=== PATIENT | female | born 1950 | race Caucasian/White ===

== ENCOUNTER 2023-05-15 08:13 | Day surgery (SDC) | payer MEDICARE, OTHER, SELFPAY ==
--- NOTE | 2023-05-15 | PATH_ITS ---
[facility] Accession Number: [id number] No. of containers..01 Tissue . 01 Material submitted: . colon - SIGMOID POLYP . 01 Diagnosis: SIGMOID POLYP: Tubular adenoma. STO 05/21/2023 1337 Local . 01 Electronically signed: . Archie Skinner MD, Pathologist NPI- [id number] . 01 Gross description: . SIGMOID POLYP: Received in formalin are multiple fragment(s) of contreras, soft tissue measuring 0.3 x 0.2 x 0.2 cm to 0.7 x 0.6 x 0.3 cm submitted entirely in 1 cassette(s) /CARL 05/21/20237 Local . 01 Pathologist provided ICD-10: D12.5 . 01 CPT . 342107 Specimen Comment: A courtesy copy of this report has been sent to [phone] Performed at: 01 [facility] [address] [place] [address], [place], [place] [id number] MD Archie Skinner MD Phone: [phone]
[2023-05-15] MEDS: LACTATED RINGERS 1,000 ML 42 ML IV (08:50)
[2023-05-15 08:51] VITALS: BP 149/89; PULSE 78; RESP 16; TEMP 36.3; O2SAT 99
--- NOTE | 2023-05-15 09:31 | PM.PREOP ---
Pre-operative Note Interval Note History & Physical reviewed/Exam performed by Physician: Yes Changes to H&P: No
[2023-05-15 10:02] VITALS: BP 150/89; PULSE 82; RESP 21; TEMP 36.6; O2SAT 91
[2023-05-15 10:07] VITALS: BP 155/92; PULSE 78; RESP 18; O2SAT 99
--- NOTE | 2023-05-15 10:07 | P.OP.COLON_ITS ---
Operative Date/Time/Diagnoses Date of procedure: 05/15/23 Time of procedure: 10:07 Pre-op diagnosis: Positive Cologuard Procedure & Clinicians Study performed: Diagnostic colonoscopy Same procedure as scheduled: Yes Indications: Diagnostic colonoscopy for positive Cologuard test Surgeon: Jose David Shirley Procedure Notes Procedure in detail: The history and physical was performed/updated and the patient is ASA class is 2. The procedure was discussed in detail with the patient. Potential risks complications including infection, bleeding, missed diagnosis, perforation, need for surgery, and were explained. Their questions were answered and informed consent was obtained. Patient was brought to the procedure room and placed standard monitoring equipment. The patient's vital signs were monitored continuously throughout the entire procedure. Prior to starting time-out was performed. The patient was placed in the left lateral recumbent position. Procedural sedation was administered by anesthesia. Examination began with a thorough inspection of the perianal area there was no evidence of fissures, fistulae, external hemorrhoids or cutaneous malignancy. The colonoscopy scope was then placed into the anal canal and was advanced to the cecum, which was identified by the ileocecal valve, the appendiceal orifice and the confluence of the taenia. The scope was then slowly withdrawn examining colon thoroughly in all directions, irrigating it of any residual stool. The scope was retroflexed within the rectum The patient tolerated the procedure well. They will be discharged once criteria are met. The prep was of good/excellent quality. The withdrawl time was 7 minutes. FINDINGS * Sigmoid colon-8 mm polyp sessile removed with cold snare in entirety. * Internal hemorrhoids Specimen(s): other (Sigmoid polyp) Impression: Colonic polyp x1 Post-procedure Plan for aftercare: Follow-up is dependent on pathology findings. Disposition: same day surgery
[2023-05-15 10:12] VITALS: BP 147/82; PULSE 86; RESP 18; O2SAT 95
[2023-05-15 10:17] VITALS: BP 142/85; PULSE 83; RESP 12; O2SAT 99
== END 2023-05-15 10:43 | disposition home or self-care (01) ==
PROVIDERS: PCP Internal Medicine; Referring Provider Surgery; Visit Provider Surgery
PROC: 0DJD8ZZ Inspection of Lower Intestinal Tract, Via Natural or Artificial Opening Endoscopic (ICD-10-PCS; CPT 45378; principal; 2023-05-15 09:15)
DX: R19.5 Other fecal abnormalities (principal); R10.9 Unspecified abdominal pain; R14.0 Abdominal distension (gaseous); K62.5 Hemorrhage of anus and rectum; R19.7 Diarrhea, unspecified; K64.8 Other hemorrhoids; D12.5 Benign neoplasm of sigmoid colon
CPT/HCPCS: 45385; J2704

== ENCOUNTER → 2023-05-18 11:09 | Outpatient (CLI) | payer MEDICARE, OTHER, SELFPAY ==
--- NOTE | 2023-05-18 11:11 | DI.CT.S_ITS ---
PROCEDURE: CT CHEST ABD PEL W CON INDICATIONS: ABD PAIN TECHNIQUE: After the administration of intravenous contrast, 5 mm thick sections acquired from the lung apices to the symphysis. 5 mm coronal and sagittal reformats were performed, with additional 7 mm MIP reformats through the lungs. For radiation dose reduction, the following was used: automated exposure control, adjustment of mA and/or kV according to patient size. COMPARISON: None. FINDINGS: Image quality: Excellent. CHEST: Lower Neck: No enlarged lymph nodes. Thyroid: No thyroid nodules which require sonographic follow up, per consensus guidelines. Axillae: No enlarged lymph nodes. Chest Wall: Unremarkable. Lungs and Pleura: Lungs are hyperinflated consistent with COPD. Scars and atelectasis in lingula. No pneumothorax or pleural effusions. No consolidation or suspicious nodules. Heart: Heart size is normal. No pericardial effusion. Thoracic Vessels: The aorta and pulmonary arteries demonstrate normal size. Mediastinum and Victoria: No enlarged lymph nodes. Esophagus: No wall thickening. No hiatal hernia. ABDOMEN: Liver: No solid mass. Gallbladder: Surgically removed. Biliary ducts: The biliary ducts are prominent, likely secondary to cholecystectomy. Pancreas: No ductal dilation. Spleen: Size is within normal limits. Adrenal Glands: No adrenal nodules. Kidneys and Ureters: No hydronephrosis. No solid mass. No complex renal cystic lesion which requires follow up. Stomach and Bowel: Normal bowel caliber, without significant wall thickening. Peritoneum: No abnormal intraperitoneal fluid. No free air. Ventral Wall: No significant ventral hernia. Abdominal Nodes: No retroperitoneal or mesenteric adenopathy by size criteria. Vessels: Aorta and inferior vena cava are normal in size. PELVIS: Pelvic Organs: There is a complex cyst in the right adnexa measuring 4.9 x 3.8 cm. Left ovary is unremarkable. Uterus is grossly normal. No pathological free-fluid in the cul-de-sac or adnexa Bladder: No bladder wall thickening, accounting for underdistention. Pelvic Nodes: No enlarged lymph nodes. Miscellaneous: No inguinal hernias are seen. Bones: No aggressive osseous abnormality. Moderate spondylitic changes in the lower lumbar spine. IMPRESSION: 1. No acute abnormalities identified. 2. A 4.5 x 3.8 cm complex cyst in the right adnexa, likely arising from the right ovary. Recommend pelvic ultrasound follow-up. Dictated by: Romina Daniels M.D. on 05/18/2023 at 12:05 Approved by: Romina Daniels M.D. on 05/18/2023 at 12:25
[2023-05-18 11:38] LABS: Estimated Glomerular Filt Rate > 60 mL/min (>60)
== END ==
LOC: CT 11:10
PROVIDERS: Radiology Diagnostic Radiology; PCP Internal Medicine; Referring Provider Surgery; Visit Provider Surgery
DX: N94.89 Other specified conditions associated with female genital organs and menstrual cycle (principal); R10.9 Unspecified abdominal pain; M47.816 Spondylosis without myelopathy or radiculopathy, lumbar region; Z90.49 Acquired absence of other specified parts of digestive tract
CPT/HCPCS: 36415; 71260; 74177; 82565; Q9967

== ENCOUNTER → 2023-06-01 15:40 | Outpatient (CLI) | payer MEDICARE, OTHER, SELFPAY ==
--- NOTE | 2023-06-01 15:42 | DI.US.S_ITS ---
PROCEDURE: US PELVIC COMPLETE INDICATIONS: 4.5 x 3.8 cm complex cyst in the right adnexa TECHNIQUE: Real-time scanning was performed of the pelvic organs, with image documentation. Additional endovaginal scanning was necessary due to incomplete visualization of the adnexal and endometrial structures by transabdominal scanning. COMPARISON: [facility], CT, CT CHEST ABD PEL W CON, 05/18/2023, 12:41. FINDINGS: Uterus: Uterus is anteverted and normal in size at 4.6 x 3.9 x 2.2 cm. The myometrium is heterogeneous. No discrete uterine fibroids. The endometrium measures 6.4 mm combined thickness. 9 x 8 x 5 mm solid-appearing structure within endometrium with surrounding small amount of endometrial fluid is seen. No significant internal vascularity. Ovaries: The right ovary measures 5 x 5.7 x 3.7 cm, with a calculated ovarian volume of 55.2 cc. The left ovary is not visualized. A 4.5 x 3.4 x 3.6 cm simple appearing cyst is seen in right ovary. A 3.2 x 3.3 x 2.9 cm simple appearing cyst is also seen in right ovary. A 1.5 x 1.3 x 1.2 cm dominant follicle is also seen in right ovary. No adnexal masses are seen. Other: No pathologic free abdominal or pelvic fluid. IMPRESSION: 1. Finding is concerning for a 9 x 8 x 5 mm polyp within the endometrium with small amount of surrounding fluid. Metal Hanging Helper correlation is recommended. 2. 2 adjacent simple appearing cysts in right ovary as described above. There is also a dominant follicle seen in right ovary. Ultrasound follow-up in 4-6 weeks is recommended. Left ovary is not visualized. No gross left adnexal mass. We strive to produce accurate, complete, and clear reports of imaging services. To assist us in improving patient care, this report was composed using standard report templates and voice recognition software. Therefore, it may contain abnormal punctuation, insertions and/or omissions. Occasional wrong-word or sound-alike substitutions may occur. Though we review the report and make efforts to correct it, we do recommend that the report be read carefully in proper context to recognize any text inaccuracies. Dictated by: Ned Valenzuela M.D. on 06/01/2023 at 19:20 Approved by: Ned Valenzuela M.D. on 06/01/2023 at 19:39
== END ==
PROVIDERS: PCP Internal Medicine; Referring Provider Surgery; Visit Provider Surgery
DX: N94.9 Unspecified condition associated with female genital organs and menstrual cycle (principal); N83.201 Unspecified ovarian cyst, right side
CPT/HCPCS: 76830; 76856

== ENCOUNTER → 2023-06-07 15:27 | Outpatient (CLI) | payer MEDICARE, OTHER, SELFPAY ==
[2023-06-07 17:56] LABS: Cancer Antigen 125 25.6 U/mL (0-35)
[2023-06-11 16:56] LABS: Inhibin B <7.0 pg/mL (0.0-16.9)
== END ==
PROVIDERS: PCP Internal Medicine; Referring Provider Obstetrics & Gynecology; Visit Provider Obstetrics & Gynecology
DX: N83.8 Other noninflammatory disorders of ovary, fallopian tube and broad ligament (principal)
CPT/HCPCS: 36415; 83520; 86304

== ENCOUNTER 2024-02-15 06:12 | Day surgery (SDC) | payer MEDICARE, OTHER, SELFPAY ==
[2024-02-13 09:58] VITALS: BMI 17.9
[2024-02-15] VITALS (8 sets, daily range): BP systolic 135–161; BP diastolic 70–92; PULSE 60–87; RESP 12–27; TEMP 36.2–36.7; O2SAT 96–99; BMI 17.9
--- NOTE | 2024-02-15 | PATH_ITS ---
[facility] Accession Number: [id number] No. of containers..04 Tissue . 01 Material submitted: . PART A: fallopian tube - BILATERAL FALLOPIAN TUBES AND OVARIES PART B: endometrium - ENDOMETRIAL CURETTINGS 1 PART C: endocervix - ENDOCERVICAL CURRETINGS PART D: endometrium - ENDOMETRIAL MASS . 01 Diagnosis: A. BILATERAL FALLOPIAN TUBES AND OVARIES: Bilateral fallopian tubes: Benign, with paratubal cyst and focal dystrophic calcifications within stroma noted on fallopian tube 1. Ovaries: Ovary 1 (presumed right ovary based on imaging studies describing a complex cyst): Benign ovary with serous cystadenoma and corpus albicans. Negative for atypia or malignancy. Ovary 2 (presumed left ovary): Benign ovary with corpus albicans. Negative for atypia and malignancy. . B. ENDOMETRIUM, CURETTINGS: Extremely scant benign glandular epithelium, favor endocervical type. Negative for dysplasia and malignancy. . C. ENDOCERVIX, CURETTINGS: Fragments of benign endometrial polyp in a background of inactive/atrophic endometrial tissue. Negative for atypia, hyperplasia, and malignancy. . D. ENDOMETRIUM MASS, BIOPSY: Scant and superficial biopsy composed of benign strips of inactive/atrophic endometrial tissue. Negative for atypia, hyperplasia, and malignancy. [facility] 02/22/2024 1524 Local . 01 Electronically signed: . Columba Winter MD, Pathologist NPI- [id number] . 01 Gross description: . A. Received in formalin with two patient identifiers and bilateral fallopian tubes and ovaries, are two tuboovarian units. The first tube measures 2.6 cm in length by 0.5 cm in diameter while the first ovary weighs 1 gram and measures 2.1 x 1.0 x 0.9 cm. Both the tube and ovary are inked blue. The second tube measures 3.4 x 0.5 cm and the second ovary weighs 23 grams and measures 5.0 x 4.4 x 3.3 cm and is loosely attached to the cyst. Both the tube and ovary are inked green. Both tubes have contreras smooth serosa with no cysts identified, and the lumina are stellate and unremarkable. Sectioning the external surface of the first ovary is contreras and cerebriform and the cut surface is unremarkable with no lesions identified. Sectioning the second ovary reveals a multiloculated cystic structure containing clear serous fluid. The bae are pale contreras and rubbery and range from 0.1 to 0.2 cm thick with no excrescences identified. A small amount of presumed normal ovarian parenchyma is distorted at the edge of the cyst with a white follicle identified measuring 0.8 cm in greatest dimension. Car Hiker sections are submitted as follows: A1. First fallopian tube to include one-half of bisected fimbriae and cross sections A2: Second fallopian tube to include one-half if bisected fimbriae and cross sections. A3: First ovary. A4-A8: Car Hiker multiloculated cyst. A9: Possible residual ovarian parenchyma. B. Received in formalin with two patient identifiers and endometrial curetting, is a very scant amount of possible tissue fragments admixed with hemorrhagic material received on friable Telfa paper. The specimen to cytology for cell block creation in B1 in the hopes the specimen survives processing. C. Received in formalin with two patient identifiers and endocervical curettings, are multiple large contreras soft tissue fragments received in a collection sock aggregating to 2.0 x 1.2 x 0.2 cm. Filtered and submitted in C1. D. Received in formalin with two patient identifiers and endometrial mass, are multiple contreras to hemorrhagic soft tissue fragments received on friable Telfa paper aggregating to 0.7 x 0.7 x 0.1 cm. Filtered and submitted in D1. ([id number]) /MRV 02/20/20242054 Local . 01 Pathologist provided ICD-10: N84.0 . 01 CPT . 659099, 882669, 450154, 732725 Specimen Comment: A courtesy copy of this report has been sent to [phone] Performed at: 01 [address] [place] [address], [place], [place] [id number] MD Archie Skinner MD Phone: [phone]
--- NOTE | 2024-02-15 07:36 | PM.PREOP ---
Pre-operative Note COVID-19 COVID-19 status: Not tested Interval Note History & Physical reviewed/Exam performed by Physician: Yes Changes to H&P: No
[2024-02-15] MEDS: ACETAMINOPHEN IV 1,000 MG/100 ML VIAL 400 MG IV (07:58)
--- NOTE | 2024-02-15 08:28 | SUR.OPER ---
Lithotomy on padded OR bed, head on pillow, arms secured on padded arm boards at <90 degrees abduction. Legs secured in padded yellow fins stirrups.
[2024-02-15] MEDS: BUPIVACAINE 0.5% W/ EPI (PF) 30 ML VIAL INJ (08:46)
--- NOTE | 2024-02-15 09:41 | P.OP_ITS ---
Operative Date/Time/Diagnoses Date of procedure: 02/15/24 Time of procedure: 08:00 Pre-op diagnosis: Right ovarian cystic mass Endometrial mass Post-op diagnosis: same Procedure & Clinicians Procedure: Procedures Operation Date: 02/15/24 07:45 Actual Procedure Side Surgeon p Hysteroscopy with resection of endometrial mass, dilation and curettage of the uterus Jose Campos MD s Laparoscopic Salpingo-oophorectomy Bilateral Jose Campos MD Indications: Chen is a 72-year-old , LMP at around age 42 when she went through spontaneous menopause who presents for evaluation right ovarian mass found originally on CT scan ultrasound a couple of years ago. She was evaluated by her primary care provider and a assistant plant manager in [place] who opted for serial ultrasounds to monitor the status of the right adnexal mass. Over the initial period of time, no significant change in the adnexal mass was noted but more recently a pelvic CT ordered by her surgeon because of the abdominal pain and indeed size of the right adnexal mass had significantly increased from prior studies. Unfortunately those prior studies are not available for review at this time but the most recent imaging shows: 05/18/2023: PROCEDURE: CT CHEST ABD PEL W CON INDICATIONS: ABD PAIN COMPARISON: None. FINDINGS: Image quality: Excellent. CHEST: Lower Neck: No enlarged lymph nodes. Thyroid: No thyroid nodules which require sonographic follow up, per consensus guidelines. Axillae: No enlarged lymph nodes. Chest Wall: Unremarkable. Lungs and Pleura: Lungs are hyperinflated consistent with COPD. Scars and atelectasis in lingula. No pneumothorax or pleural effusions. No consolidation or susp icious nodules. Heart: Heart size is normal. No pericardial effusion. Thoracic Vessels: The aorta and pulmonary arteries demonstrate normal size. Mediastinum and Victoria: No enlarged lymph nodes. Esophagus: No wall thickening. No hiatal hernia. ABDOMEN: Liver: No solid mass. Gallbladder: Surgically removed. Biliary ducts: The biliary ducts are prominent, likely secondary to cholecys tectomy. Pancreas: No ductal dilation. Spleen: Size is within normal limits. Adrenal Glands: No adrenal nodules. Kidneys and Ureters: No hydronephrosis. No solid mass. No complex renal cystic lesion which requires follow up. Stomach and Bowel: Normal bowel caliber, without significant wall thickening. Peritoneum: No abnormal intraperitoneal fluid. No free air. Ventral Wall: No significant ventral hernia. Abdominal Nodes: No retroperitoneal or mesenteric adenopathy by size criteria. Vessels: Aorta and inferior vena cava are normal in size. PELVIS: Pelvic Organs: There is a complex cyst in the right adnexa measuring 4.9 x 3.8 cm. Left ovary is unremarkable. Uterus is grossly normal. No pathological free-fluid in the cul-de-sac or adnexa Bladder: No bladder wall thickening, accounting for underdistention. Pelvic Nodes: No enlarged lymph nodes. Miscellaneous: No inguinal hernias are seen. Bones: No aggressive osseous abnormality. Moderate spondylitic changes in the lower lumbar spine. IMPRESSION: 1. No acute abnormalities identified. 2. A 4.5 x 3.8 cm complex cyst in the right adnexa, likely arising from the right ovary. Recommend pelvic ultrasound follow-up. 06/01/2023: PROCEDURE: US PELVIC COMPLETE INDICATIONS: 4.5 x 3.8 cm complex cyst in the right adnexa COMPARISON: [facility], CT, CT CHEST ABD PEL W CON, 05/18/2023, 12:41. FINDINGS: Uterus: Uterus is anteverted and normal in size at 4.6 x 3.9 x 2.2 cm. The myometrium is heterogeneous. No discrete uterine fibroids. The endometrium measures 6.4 mm combined thickness. 9 x 8 x 5 mm solid-appearing structure within endometrium with surrounding small amount of endometrial fluid is seen. No significant internal vascularity. Ovaries: The right ovary measures 5 x 5.7 x 3.7 cm, with a calculated ovarian volume of 55.2 cc. The left ovary is not visualized. A 4.5 x 3.4 x 3.6 cm simple appearing cyst is seen in right ovary. A 3.2 x 3.3 x 2.9 cm simple appearing cyst is also seen in right ovary. A 1.5 x 1.3 x 1.2 cm dominant follicle is also seen in right ovary. No adnexal masses are seen. Other: No pathologic free abdominal or pelvic fluid. IMPRESSION: 1. Finding is concerning for a 9 x 8 x 5 mm polyp within the endometrium with small amount of surrounding fluid. Maintainability Engineer correlation is recommended. 2. 2 adjacent simple appearing cysts in right ovary as described above. There is also a dominant follicle seen in right ovary. Ultrasound follow-up in 4-6 weeks is recommended. Left ovary is not visualized. No gross left adnexal mass. Patient denies any postmenopausal bleeding, family history of ovarian or breast cancer. To this point, no tumor markers have been drawn on this patient. The patient's abdominal pain is postprandial episodes beginning while she eats and lasting as long as a couple of hours afterwards. The pain is localized to the epigastric area and appears to be increasing in intensity and duration. The patient add an abnormal Cologuard study and underwent colonoscopy recently which was negative but no upper endoscopy was performed. After discussions with the patient and her regarding options for further evaluation and treatment of her abnormal endometrial ultrasound as well as the right adnexal mass, the patient wishes to proceed with laparoscopic bilateral salpingo oophorectomy, hysteroscopy possible biopsies, and dilation and curettage of the uterus. She presents today for her scheduled surgery. Surgeon: Jose Campos Anesthesia Type: General Operative Notes Findings: The right ovary is significantly enlarged without surface abnormalities and contains a cyst with clear fluid and no nodularity of the cyst wall. The left ovary is normal in size and shape. Both tubes appeared to be normal as well. T he uterus itself is atrophic but normal in shape. The remainder of the abdomen and pelvis appear to be normal laparoscopic evaluation. The endometrial cavity shows an atrophic endometrium and normal shape but there is a broad-based polypoid mass arising from the anterior lower uterine segment surface. It was resected in toto and submitted as a separate pathologic specimen. Closure Type: primary Specimen(s): endometrial curettings, endometrial polyp, left tube & ovary, right tube & ovary and other (Endocervical curettings) Estimated blood loss (mL): 10 Blood products transfused: none Procedure in detail: With the patient under satisfactory general anesthesia in the modified dorsal lithotomy position, the perineum, vagina, and abdomen were prepped and draped for IUD removal and laparoscopic bilateral salpingectomy. A pre-surgical safety time-out was then taken in accordance with [facility] Main OR protocols. The umbilicus was then infiltrated with 0.5% Marcaine with epinephrine and 2.5 cm transverse incision was made in the inferior aspect of the umbilicus. The dissection was carried downward to the fascia which was grasped with 2 Jean-Paul clamps and incised transversely. The dissection was then carried down through the preperitoneal fat and into the abdominal cavity without issue. 0 Vicryl stay sutures were then placed at both angles of the vaginal incision. The Zuñiga cannula was then placed through the fascial and peritoneal defect into the abdominal cavity and secured in place with the stay sutures. Proper placement of the aside cannula was confirmed with laparoscopic visualization and insufflation of the abdomen continued. A 2nd and 3rd 5 mm laparoscopic port were placed in the right and left mid quadrants using a similar technique and using a 3 puncture technique, the abdomen and pelvis were visualized with the findings as noted above. The distal aspect of the left fallopian tube was then grasped with a grasping forceps and using a Power Seal device, utero-ovarian ligament was coagulated and divided. The dissection using the Power Seal continuing across the mesosalpinx to the cornua where the utero-ovarian ligament and fallopian tube were coagulated and divided. Attention was then turned to the right adnexa with distal tube grasped with a grasping forcep. The Power Seal device was then used to coagulate infundibulopelvic ligament and the dissection was carried across the mesosalpinx to the cornua where the utero- ovarian ligament and fallopian tube on the right side were amputated at the cornua following coagulation proximal tube the Power Seal device. Pelvis was inspected and there were no abnormalities noted following bilateral salpingectomy. The pneumoperitoneum was then vented and the ports removed from the abdominal wall. The umbilical incision fascia was closed with interrupted 0 Vicryl was and the skin of each port incision was then closed with 4-0 Monocryl using inverted interrupted stitches and skin glue was applied. Appropriate dressings were then applied, and attention directed towards performance of hysteroscopy with D&C. A bivalve speculum was placed in the vagina and the cervix visualized. The anterior lip of the cervix was grasped with a single- tooth tenaculum and the endocervical canal sequentially dilated to 7 mm. Hysteroscope was then placed through the endocervical canal and using saline as a distention medium, the endometrial cavity was inspected with the findings as noted above. The endometrial mass was then resected with MyoSure Lite and submitted as separate pathologic specimen. The scope was removed and fractional D&C performed with separate endometrial and endocervical curetting specimens submitted for pathologic evaluation. The tenaculum was removed from the anterior lip of the cervix and no bleeding was encountered. The patient was then awakened, and transferred to the PACU for a period of observation after having tolerated the procedure well. Complications: none Post-operative Condition: stable Disposition: PACU Plan for aftercare: Routine postoperative care with follow-up scheduled 2 weeks after her surgery
[2024-02-15] MEDS: OXYCODONE IR 5 MG TABLET PO ×2 (09:55→10:27)
[2024-02-15] MEDS: KETOROLAC 30 MG/ML VIAL 15 MG IV (10:22)
[2024-02-15] MEDS: LACTATED RINGERS 1,000 ML 42 ML IV (10:34)
--- NOTE | 2024-03-13 15:40 | P.HPOB_ITS ---
History of Present Illness History of Present Illness Reason for admission: other Narrative: Chen is a 73-year-old , LMP at around age 42 when she went through spontaneous menopause who presents for evaluation right ovarian mass found originally on CT scan ultrasound a couple of years ago. She was evaluated by her primary care provider and a school of nursing director in [place] who opted for serial ultrasounds to monitor the status of the right adnexal mass. Over the initial period of time, no significant change in the adnexal mass was noted but more recently a pelvic CT ordered by her surgeon because of the abdominal pain and indeed size of the right adnexal mass had significantly increased from prior studies. Unfortunately those prior studies are not available for review at this time but the most recent imaging shows: 05/18/2023: PROCEDURE: CT CHEST ABD PEL W CON INDICATIONS: ABD PAIN COMPARISON: None. FINDINGS: Image quality: Excellent. CHEST: Lower Neck: No enlarged lymph nodes. Thyroid: No thyroid nodules which require sonographic follow up, per consensus guidelines. Axillae: No enlarged lymph nodes. Chest Wall: Unremarkable. Lungs and Pleura: Lungs are hyperinflated consistent with COPD. Scars and atelectasis in lingula. No pneumothorax or pleural effusions. No consolidation or suspicious nodules. Heart: Heart size is normal. No pericardial effusion. Thoracic Vessels: The aorta and pulmonary arteries demonstrate normal size. Mediastinum and [place]: No enlarged lymph nodes. Esophagus: No wall thickening. No hiatal hernia. ABDOMEN: Liver: No solid mass. Gallbladder: Surgically removed. Biliary ducts: The biliary ducts are prominent, likely secondary to cholecystectomy. Pancreas: No ductal dilation. Spleen: Size is within normal limits. Adrenal Glands: No adrenal nodules. Kidneys and Ureters: No hydronephrosis. No solid mass. No complex renal cystic lesion which requires follow up. Stomach and Bowel: Normal bowel caliber, without significant wall thickening. Peritoneum: No abnormal intraperitoneal fluid. No free air. Ventral Wall: No significant ventral hernia. Abdominal Nodes: No retroperitoneal or mesenteric adenopathy by size criteria. Vessels: Aorta and inferior vena cava are normal in size. PELVIS: Pelvic Organs: There is a complex cyst in the right adnexa measuring 4.9 x 3.8 cm. Left ovary is unremarkable. Uterus is grossly normal. No pathological free-fluid in the cul-de-sac or adnexa Bladder: No bladder wall thickening, accounting for underdistention. Pelvic Nodes: No enlarged lymph nodes. Miscellaneous: No inguinal hernias are seen. Bones: No aggressive osseous abnormality. Moderate spondylitic changes in the lower lumbar spine. IMPRESSION: 1. No acute abnormalities identified. 2. A 4.5 x 3.8 cm complex cyst in the right adnexa, likely arising from the right ovary. Recommend pelvic ultrasound follow-up. 06/01/2023: PROCEDURE: US PELVIC COMPLETE INDICATIONS: 4.5 x 3.8 cm complex cyst in the right adnexa COMPARISON: [facility], CT, CT CHEST ABD PEL W CON, 05/18/2023, 12:41. FINDINGS: Uterus: Uterus is anteverted and normal in size at 4.6 x 3.9 x 2.2 cm. The myometrium is heterogeneous. No discrete uterine fibroids. The endometrium measures 6.4 mm combined thickness. 9 x 8 x 5 mm solid-appearing structure within endometrium with surrounding small amount of endometrial fluid is seen. No significant internal vascularity. Ovaries: The right ovary measures 5 x 5.7 x 3.7 cm, with a calculated ovarian volume of 55.2 cc. The left ovary is not visualized. A 4.5 x 3.4 x 3.6 cm simple appearing cyst is seen in right ovary. A 3.2 x 3.3 x 2.9 cm simple appearing cyst is also seen in right ovary. A 1.5 x 1.3 x 1.2 cm dominant follicle is also seen in right ovary. No adnexal masses are seen. Other: No pathologic free abdominal or pelvic fluid. IMPRESSION: 1. Finding is concerning for a 9 x 8 x 5 mm polyp within the endometrium with small amount of surrounding fluid. Radio Director correlation is recommended. 2. 2 adjacent simple appearing cysts in right ovary as described above. There is also a dominant follicle seen in right ovary. Ultrasound follow-up in 4-6 weeks is recommended. Left ovary is not visualized. No gross left adnexal mass. Patient denies any postmenopausal bleeding, family history of ovarian or breast cancer. To this point, no tumor markers have been drawn on this patient. The patient's abdominal pain is postprandial episodes beginning while she eats and lasting as long as a couple of hours afterwards. The pain is localized to the epigastric area and appears to be increasing in intensity and duration. The patient add an abnormal Cologuard study and underwent colonoscopy recently which was negative but no upper endoscopy was performed. After discussions with the patient and her regarding options for further evaluation and treatment of her abnormal endometrial ultrasound as well as the right adnexal mass, the patient wishes to proceed with laparoscopic bilateral salpingo oophorectomy, hysteroscopy possible biopsies, and dilation and curettage of the uterus. She presents today for her scheduled surgery. [facility] Medical History (Updated 03/13/24 @ 15:42 by Jose Campos MD) RAD (reactive airway disease) Stomach pain Bowel movement symptom Heart attack (~2011) Seizures Meningioma Surgical History (Updated 06/19/23 @ 14:18 by Lynnette Grigsby RN) Hx of foot surgery (2017) Hx of colonoscopy (02/09/21) Hx of resection of meningioma (2009) Hx of cholecystectomy S/P tubal ligation Family History Mother Heart disease Father Heart disease Social History marital status: household members: spouse lives independently: Yes occupational status: previously employed Smoking Status: Never smoker alcohol intake: current substance use type: does not use Meds Home Medications and Allergies Home Medications Medication Instructions Recorded Confirmed Type amitriptyline 50 mg tablet 50 mg PO DAILY PRN Sleep 05/10/23 02/15/24 History aspirin 325 mg tablet 325 mg PO DAILY 05/10/23 02/15/24 History lacosamide 100 mg tablet 100 mg PO BID 05/10/23 02/15/24 History levetiracetam 750 mg tablet 750 mg PO BID 05/10/23 02/15/24 History temazepam 30 mg capsule 30 mg PO BEDTIME PRN Sleep 05/10/23 02/15/24 History medroxyprogesterone 10 mg tablet 10 mg PO DAILY #10 tabs 02/29/24 Rx Allergies Allergy/AdvReac Type Severity Reaction Status Date / Time Sulfa (Sulfonamide Allergy Severe Difficulty Verified 06/20/23 09:21 Antibiotics) Breathing sucralfate Allergy Mild Verified 06/20/23 09:21 Review of Systems Review of Systems Narrative: Problem-specific ROS positives included in HPI Exam Vital Signs (past 8 hours): Oxygen Delivery Method Room Air Const General: cooperative and comfortable Nutritional Appearance: average body habitus Orientation: alert and oriented x3 HENMT Head: normal to inspection, atraumatic and abrasion Ears: hearing grossly normal bilaterally Face and sinus: face symmetric Eyes General: appearance normal, both eyes and all related structures Conjunctivae: conjunctivae normal Sclera: sclerae normal EOM: EOM intact bilaterally Neck Neck: normal visual inspection Resp Effort & Inspection: normal respiratory effort and able to speak in complete sentences Auscultation: clear to auscultation bilaterally Cardio Rate: regular rate Rhythm: regular rhythm Heart Sounds: S1 normal, S2 normal and no murmurs GI Inspection: normal to inspection Palpation: soft and no hepatosplenomegaly External Female Exam: other (No significant bleeding noted) Extrem General: no calf tenderness Psych Appearance: grossly normal Mental Status: mental status grossly normal Speech and Movement: speech and movement normal Mood: congruent mood Affect: normal affect Attitude: cooperative Thought Process: normal Thought Content: normal Judgment: judgment good Assessment & Plan Assessment and plan (1) Endometrial mass: Status: Resolved (2) Ovarian mass, right: Status: Resolved (3) Abdominal pain: Qualifiers: Abdominal location: lower abdomen, unspecified Qualified Code(s): R10.30 - Lower abdominal pain, unspecified Status: Acute Plan Patient counseled regarding alternatives, risks, benefits, and potential complications associated with hysteroscopy with possible biopsies/resection of endometrial polyp, dilation and curettage of the uterus, and laparoscopic bilateral salpingo oophorectomy. With full understanding of the above, a written consent was executed, signed, and witnessed this date. Time-Based Coding :: [TOTAL MINUTES] spent with patient and on the chart (including review of chart, obtaining history, exam, reviewing outside data, placing orders, documenting exam and treatment plan, and counseling patient) on [DATE].
== END 2024-02-15 11:09 | disposition home or self-care (01) ==
PROVIDERS: PCP Internal Medicine; Referring Provider Obstetrics & Gynecology; Visit Provider Obstetrics & Gynecology
PROC: 0UDB8ZZ Extraction of Endometrium, Via Natural or Artificial Opening Endoscopic (ICD-10-PCS; CPT 58558; principal; 2024-02-15 07:45)
PROC: 0UT24ZZ Resection of Bilateral Ovaries, Percutaneous Endoscopic Approach (ICD-10-PCS; CPT 58661; 2024-02-15 07:45)
DX: N94.89 Other specified conditions associated with female genital organs and menstrual cycle (principal); N83.8 Other noninflammatory disorders of ovary, fallopian tube and broad ligament; N83.292 Other ovarian cyst, left side; N83.291 Other ovarian cyst, right side; N84.0 Polyp of corpus uteri
CPT/HCPCS: 58661; 58558; J0134; J1100; J1885; J2405; J2704; J3010